=== PATIENT | female | born 1985 | race Caucasian/White ===

== ENCOUNTER 2017-02-01 05:27 | Emergency (ER) | payer OTHER ==
[~2017-02-01] VITALS: Ht 160 cm; Wt 59.0 kg
--- NOTE | 2017-02-01 05:45 | ED.ADGEN ---
Adult General Chief Complaint Chief Complaint " .. I ve been sick last two days.. now mastitis.. and coughing up this stuff.. ".. " I work at [employer].. " " I did get my flu shot this year.. " HPI HPI Patient is a 31 year old female who presents with above hx and complaints of mastitis and bronchitis and fever. Pt. is in contact with sick patients. No travel. Patient is normally healthy. However recently stopped breast-feeding her child because his teeth became to sharp, now she has mastitis. Review of Systems Review of Systems Constitutional: Subjective history of fever and chills [] Eyes: Denies change in visual acuity, redness, or eye pain [] HENT: History of nasal congestion and sore throat [] Respiratory: History of cough and wheezing. History of mastitis Cardiovascular: No additional information not addressed in HPI [] GI: Denies abdominal pain, nausea, vomiting, bloody stools or diarrhea [] : Denies dysuria or hematuria [] Musculoskeletal: Denies back pain or joint pain [] Integument: Denies rash or skin lesions [] Neurologic: Denies headache, focal weakness or sensory changes [] Endocrine: Denies polyuria or polydipsia [] Family History Family History Noncontributory Current Medications Current Medications Current Medications Medications (Trade) Dose Ordered Sig/Bryant Start Time Stop Time Status Last Admin Dose Admin Albuterol Sulfate (Ventolin Hfa) 2 puff 1X ONCE 02/01/17 06:00 02/01/17 06:01 DC 02/01/17 06:27 2 PUFF Azithromycin (Zithromax) 500 mg 1X ONCE 02/01/17 06:00 02/01/17 06:01 DC 02/01/17 06:28 500 MG Prednisone (Prednisone) 60 mg 1X ONCE 02/01/17 06:00 02/01/17 06:01 DC 02/01/17 06:28 60 MG See nursing for home medications Allergies Allergies Allergies Coded Allergies Type Severity Reaction Last Updated Verified tomato Allergy Intermediate 02/01/17 Yes Physical Exam Physical Exam Constitutional: Well developed, well nourished, moderately acute distress, non- toxic appearance. [] HENT: Normocephalic, atraumatic, bilateral external ears normal, oropharynx moist, postnasal drainage and injected pharynx, no oral exudates, nose rhinorrhea and swollen turbinates Eyes: PERRLA, EOMI, conjunctiva normal, no discharge. Glasses Neck: Normal range of motion, no tenderness, supple, no stridor. [] Cardiovascular:Heart rate regular rhythm, no murmur [] Lungs & Thorax: Bilateral breath sounds equal with scattered wheezes throughout on auscultation [] Her cough does produce some discolored sputum. Mastitis localized to breast nipples. No adenopathy axillary Abdomen: Bowel sounds normal, soft, no tenderness, no masses, no pulsatile masses. [] Skin: Warm, dry, no erythema, no rash. [] Back: No tenderness, no CVA tenderness. [] Extremities: No tenderness, no cyanosis, no clubbing, ROM intact, no edema. [] Neurologic: Alert and oriented X 3, normal motor function, normal sensory function, no focal deficits noted. [] Psychologic: Affect normal, judgement normal, mood normal. [] Current Patient Data Vital Signs Vital Signs Date Time Temp Pulse Resp B/P Pulse Ox O2 Delivery O2 Flow Rate FiO2 02/01/17 05:47 97.6 115 20 98 Room Air Lab Results Laboratory Tests Test 02/01/17 06:10 Influenza Type A (Rapid) Negative (NEGATIVE) Influenza Type B (Rapid) Negative (NEGATIVE) Group A Streptococcus Rapid Negative (NEGATIVE) EKG EKG [] Radiology/Procedures Radiology/Procedures [] Course & Med Decision Making Course & Med Decision Making Pertinent Labs and Imaging studies reviewed. (See chart for details). Continue recommended therapy for your mastitis as previously directed. Take his Zithromax 250 mg a day for 5 days. Take prednisone 50 mg a day for 5 days. Use MDI 2 puffs 4 times a day. Follow-up primary care. No return to work of febrile. Return if any concerns. Tylenol and ibuprofen for discomfort and fever. For marked discomfort may take Vicoprofen up 4 times a day. [] Final Impression Final Impression 1. Bronchitis 2. Mastitis[] 3. Upper respiratory infection Problems: Dragon Disclaimer Dragon Disclaimer This electronic medical record was generated, in whole or in part, using a voice recognition dictation system. LETY PEREIRA MD Feb 01, 2017 05:45
[2017-02-01 05:47] VITALS: BP 116/69
[2017-02-01] MEDS ORDERED: ALBUTEROL SULFATE 8GM INHALER. INH ONE (06:00)
[2017-02-01] MEDS ORDERED: PREDNISONE 20 MG TABLET PO ONE (06:00)
[2017-02-01] MEDS ORDERED: AZITHROMYCIN 250 MG TABLET. PO ONE (06:00)
[2017-02-01] MEDS ORDERED: AZIT250T PO (06:26)
[2017-02-01] MEDS ORDERED: PRED50TA PO (06:26)
[2017-02-01] MEDS ORDERED: HYDR-79 PO (06:27)
[2017-02-01 07:05] LABS: INFLUENZA A PATIENT NEGATIVE (NEGATIVE); INFLUENZA B PATIENT NEGATIVE (NEGATIVE)
== END 2017-02-01 06:50 | disposition home or self-care (01) ==
LOC: ER 05:27
DX: J06.9 Acute upper respiratory infection, unspecified (principal); J40 Bronchitis, not specified as acute or chronic; N61.0 Mastitis without abscess; Z91.018 Allergy to other foods
CPT/HCPCS: 87070; 87804; 87880; 94640; 99284; J0456; J7512; J7613

== ENCOUNTER 2019-11-26 07:42 | Emergency (ER) | payer OTHER ==
[~2019-11-26] VITALS: Ht 160 cm; Wt 65.8 kg
[~2019-11-26 07:42] MED LIST: AZIT250T PO; HYDR-1179 PO; PRED50TA PO
[2019-11-26 08:15] LABS: BASO # 0.1 x10^3/uL (0.0-0.2); BASO % 1 % (0-3); EOS % 0 % (0-3); HEMATOCRIT 34.8 % (36.0-47.0); HEMOGLOBIN 11.9 g/dL (12.0-15.5); LYMPH # 0.5 x10^3/uL (1.0-4.8); LYMPH % 6 % (24-48); MEAN CORPUSCULAR HEMOGLOBIN 29 pg (25-35); MEAN CORPUSCULAR HGB CONC 34 g/dL (31-37); MEAN CORPUSCULAR VOLUME 84 fL (79-100); MONO # 0.5 x10^3/uL (0.0-1.1); MONO % 6 % (0-9); NEUT # 7.1 x10^3uL (1.8-7.7); NEUT % 87 % (31-73); PLATELET COUNT 244 x10^3/uL (140-400); RED BLOOD COUNT 4.13 x10^6/uL (3.50-5.40); RED CELL DISTRIBUTION WIDTH 14.1 % (11.5-14.5); WHITE BLOOD COUNT 8.2 x10^3/uL (4.0-11.0)
[2019-11-26] MEDS ORDERED: ONDANSETRON PF 4 MG/2 ML VIAL. IVP ONE (08:15)
[2019-11-26] MEDS ORDERED: IV NORMAL SALINE 1,000ML 1,000 ML IV ONE (08:15)
--- NOTE | 2019-11-26 08:16 | PHYS DOC ---
Past History Past Medical History: Anemia Past Surgical History: No Surgical History Alcohol Use: None Drug Use: None Adult General Chief Complaint Chief Complaint: NAUSEA/VOMITING/DIARRHEA HPI HPI 34-year-old female presents with nausea, vomiting, and diarrhea. She has had the symptoms for about 24 hours. It started off mild but now she is episodes of vomiting and diarrhea for the last several hours. She is unable to keep any foods or liquids. She is concerned about dehydration. She has some diffuse abdominal cramping from vomiting. She denies chest pain or shortness of breath. She does not believe she has had a fever. Her also has similar symptoms at this time. Review of Systems Review of Systems Constitutional: Denies fever or chills [] Eyes: Denies change in visual acuity, redness, or eye pain [] HENT: Denies nasal congestion or sore throat [] Respiratory: Denies cough or shortness of breath [] Cardiovascular: No additional information not addressed in HPI [] GI: Diffuse mild abdominal pain, nausea, vomiting, diarrhea [] : Denies dysuria or hematuria [] Musculoskeletal: Denies back pain or joint pain [] Integument: Denies rash or skin lesions [] Neurologic: Denies headache, focal weakness or sensory changes [] Endocrine: Denies polyuria or polydipsia [] All other systems were reviewed and found to be within normal limits, except as documented in this note. Current Medications Current Medications Current Medications Medications (Trade) Dose Ordered Sig/Bryant Start Time Stop Time Status Last Admin Dose Admin Ondansetron HCl (Zofran) 4 mg 1X ONCE 11/26/19 08:15 11/26/19 08:16 UNV Sodium Chloride 1,000 ml @ 1,000 mls/hr 1X ONCE 11/26/19 08:15 11/26/19 09:14 UNV Allergies Allergies Allergies Coded Allergies Type Severity Reaction Last Updated Verified tomato Allergy Intermediate 02/01/17 Yes Physical Exam Physical Exam Constitutional: Well developed, well nourished, no acute distress, non-toxic appearance. [] HENT: Normocephalic, atraumatic, bilateral external ears normal, oropharynx moist, no oral exudates, nose normal. [] Eyes: PERRLA, EOMI, conjunctiva normal, no discharge. [] Neck: Normal range of motion, no tenderness, supple, no stridor. [] Cardiovascular:Heart rate regular rhythm, no murmur [] Lungs & Thorax: Bilateral breath sounds clear to auscultation [] Abdomen: Bowel sounds normal, soft, no tenderness, no masses, no pulsatile masses. [] Skin: Warm, dry, no erythema, no rash. [] Back: No tenderness, no CVA tenderness. [] Extremities: No tenderness, no cyanosis, no clubbing, ROM intact, no edema. [] Neurologic: Alert and oriented X 3, normal motor function, normal sensory function, no focal deficits noted. [] Psychologic: Affect normal, judgement normal, mood normal. [] Current Patient Data Vital Signs Vital Signs Date Time Temp Pulse Resp B/P (MAP) Pulse Ox O2 Delivery O2 Flow Rate FiO2 11/26/19 07:53 98.4 114 16 96 Room Air Lab Results Laboratory Tests Test 11/26/19 08:07 POC Urine HCG, Qualitative hcg negative (Negative) EKG EKG [] Radiology/Procedures Radiology/Procedures [] Course & Med Decision Making Course & Med Decision Making Pertinent Labs and Imaging studies reviewed. (See chart for details) The patient's labs are unremarkable except for slightly low potassium. She also has a hemoglobin of 11.9. We have given her a liter of normal saline and 4 mg of Zofran for her vomiting. Vomiting has been controlled in the emergency room. I will discharge the patient with a prescription for Zofran. She can also use loperamide as needed for the diarrhea. She is stable for discharge at this time. [] Dragon Disclaimer Dragon Disclaimer This electronic medical record was generated, in whole or in part, using a voice recognition dictation system. Departure Departure: Impression: Primary Impression: Viral gastroenteritis Disposition: 01 HOME, SELF-CARE Condition: STABLE Referrals: DEXTER SANCHEZ MD (PCP) Patient Instructions: Viral Gastroenteritis, [id number] Scripts Ondansetron (ONDANSETRON ODT) 4 Mg Tab.rapdis 1 TAB PO PRN Q6-8HRS PRN for VOMITING, #16 TAB Prov: EL GUO DO 11/26/19 EL GUO DO Nov 26, 2019 08:16
[2019-11-26 08:20] LABS: CALCIUM 9.1 mg/dL (8.5-10.1); GFR 63.5; POTASSIUM 3.3 mmol/L (3.5-5.1)
[2019-11-26] MEDS ORDERED: ONDANSETRON PF 4 MG/2 ML VIAL. ONE (08:21)
[2019-11-26 08:24] VITALS: BP 102/65
[2019-11-26 08:26] LABS: ALBUMIN/GLOBULIN RATIO 0.9 (1.0-1.7); TOTAL BILIRUBIN 0.6 mg/dL (0.2-1.0); TOTAL PROTEIN 8.3 g/dL (6.4-8.2)
[2019-11-26] MEDS ORDERED: ONDA4TAB12 PO (08:50)
== END 2019-11-26 09:15 | disposition home or self-care (01) ==
LOC: ER 07:42
DX: A08.4 Viral intestinal infection, unspecified (principal); R11.2 Nausea with vomiting, unspecified; Z86.2 Personal history of diseases of the blood and blood-forming organs and certain disorders involving the immune mechanism; Z91.018 Allergy to other foods
CPT/HCPCS: 36415; 80053; 81025; 85025; 96361; 96374; 99284; J2405; J7030